=== PATIENT | male | born 1940 | race Caucasian/White ===

== ENCOUNTER 2020-04-15 00:39 | Emergency (ER) | payer OTHER, SELFPAY ==
[2020-04-15 00:52] VITALS: BP 128/56; PULSE 55; RESP 16; TEMP 36.6; O2SAT 96; BMI 28.7
[2020-04-15 01:30] VITALS: BP 103/50; PULSE 58; RESP 16; O2SAT 95
--- NOTE | 2020-04-15 01:38 | ED_ITS ---
HPI - Nausea/Vomiting/Diarrhea General Chief complaint: Nausea/Vomiting/Diarrhea Stated complaint: fall thursday/hit back/poss cracked rib Time Seen by Provider: 04/15/20 00:52 Source: patient Mode of arrival: Wheelchair Limitations: physical limitation History of Present Illness HPI Narrative: Patient is a 79-year-old male here for evaluation of left-sided flank pain, problems breathing and nausea. Patient states that approximately 4 days ago he was outside working in the yard where he slipped on some wet grass and fell landing on his left side. He did not hit his head. There was no loss of consciousness. Since then he has had pain in his left flank and has had problems taking a deep breath. No fevers. Had some pain medication at home left over from another issue and he has been taking that which he states only minimally helps his symptoms. He then states that he has not had a bowel movement in at least 3 days. He is still passing gas. No vomiting. No nausea. Describes generalized abdominal pain. Came into the emergency department because of the lack of a bowel movement several days and also because of the continued pain in his left flank. Related Data Allergies Allergy/AdvReac Type Severity Reaction Status Date / Time No Known Drug Allergies Allergy Verified 04/15/20 00:52 Review of Systems Constitutional Constitutional: Denies fever(s) and Denies headache(s) ENT Ears, Nose, Mouth, and Throat: Denies vertigo, Denies dizziness and Denies headache(s) Cardiovascular Cardiovascular: Denies chest pain, Denies rapid heart rate, Denies lighthead edness and Denies dyspnea on exertion Respiratory Respiratory: Denies cough, Denies hemoptysis, Reports pain on inspiration, Reports pain with cough and Denies dyspnea on exertion Gastrointestinal Gastrointestinal: Reports abdominal pain, Denies nausea and Denies vomiting Genitourinary Genitourinary: Denies dysuria Genitourinary: Denies dysuria Musculoskeletal Comments: Left flank pain Integumentary/Breasts Skin/Breast: Denies rash Comments: Bruising left flank Neurologic Neurologic: Denies behavioral changes, Denies confusion, Denies vertigo, Denies dizziness and Denies headache(s) Psychiatric Psychiatric: Denies behavioral changes and Denies confusion Hematologic/Lymphatic Hematologic/Lymphatic: Denies easy bleeding and Denies easy bruising Allergic/Immunologic Allergic/Immunologic: Denies urticaria Patient History Medical History History of kidney cancer (Acute) Surgical History History of nephrectomy, right (Acute) Social History Smoking Status: Never smoker Smoking Status: Never smoker alcohol intake frequency: other Substance Use Type: does not use Exam Initial Vital Signs Initial Vital Signs: Vital Signs Temperature 97.9 F 04/15/20 00:52 Pulse Rate 55 L 04/15/20 00:52 Respiratory Rate 16 04/15/20 00:52 Blood Pressure 128/56 L 04/15/20 00:52 Pulse Oximetry 96 04/15/20 00:52 Const General: cooperative, healthy appearing, comfortable, well developed and well groomed Limitations: mental status not altered HENMT Head: normal to inspection and normocephalic Resp Effort & Inspection: normal respiratory effort Auscultation: clear to auscultation bilaterally Cardio Rate: regular rate Rhythm: regular rhythm GI Inspection: non-distended Palpation: soft, No firm and tender (Generalized) Back/Spine/Pelvis Other: Bruising left flank with tenderness over this area Skin Other: Bruising left flank Neuro General: patient alert, patient awake and patient oriented x3 Speech: speech normal Extrem General: normal to inspection and capillary refill normal Psych Appearance: grossly normal and well kempt Scores GCS [place] coma scale eye opening: Spontaneous [place] coma scale verbal response: Orientated [place] coma scale motor response: Obey commands Curtis coma scale total score: 15 Course Orders Ordered: ED Orders 04/15/20 01:50 CT abdomen pelvis wo con Stat Vital Signs Vital signs: Vital Signs - 8 hr 04/15/20 00:52 04/15/20 01:30 04/15/20 02:36 Temperature 97.9 F Pulse Rate 55 L 58 L 52 L Respiratory Rate 16 16 16 Blood Pressure 128/56 L 103/50 L 102/51 L Pulse Oximetry 96 95 97 MDM - Nausea/Vomiting/Diarrhea Imaging Data CT scan - abdomen/pelvis: Radiologist's Impression: Left 9th and 10th rib fractures appear to be acute. A small amount of adjacent pleural fluid could represent hemorrhage. Gas within the adjacent lung parenchyma could represent a posttraumatic pneumatocele. No pneumothorax is appreciated, but the long is incompletely imaged on this study. Multiple compression fractures of thoracic lumbar vertebral bodies are probably old. There exact ages are not determined. Otherw ise there are degenerative changes of the lumbar spine. No pelvic fracture is suspected. Chronic changes and postoperative changes of the abdomen including right nephrectomy and cholelithiasis. No solid organ injury is appreciated. Infrarenal abdominal aortic aneurysm measures up to 4.6 cm in diameter MDM Narrative Medical decision making narrative: Patient is not hypoxic, not tachypneic, has been 4 days since his fall. The fall does appear to be mechanical. He has no intra-abdominal injuries and no signs of a bowel obstruction. I suspect that his decrease in bowel movements over the past several days is most likely secondary to the use of the Tylenol 3. I did discuss this with him. We did discuss the use of either he stool softener or laxative. I offered a prescription for this however patient states that he would rather pick it up [id number]. He does have left-sided 9th and 10th rib fractures. Given his age and the fall a modified trauma was called secondary to this. He is not on anticoagulation. He is not in any respiratory distress. I did discuss the case with Dr. Yee who is on-call for General surgery given the injuries. After this discussion we felt that given the patient's clinical presentation, the length of time since his fall that sending the patient home with symptom control good return precautions is not unreasonable at this point in time. The patient does have pain medication at home. We discussed the use of this. He was seen by respiratory therapy given an incentive spirometer. He was given strict return precautions with regard to his injuries. He and his expressed understanding and agreement. Discharge Plan Departure Patient Disposition: Home Clinical Impression: Multiple rib fractures Qualifiers: Encounter type: initial encounter Fracture type: closed Laterality: left Qualified Code(s): S22.42XA - Multiple fractures of ribs, left side, initial encounter for closed fracture Discharge Date/Time: 04/15/20 03:37 Instructions: DI for Rib Fracture Activity Restrictions/Additional Instructions: Use the incentive spirometer as directed. Continue with the pain medication as needed. Be sure that you are occasionally coughing and taking deep breaths like we discussed. Also recommend that you start an [id number] stool softener/laxative. Return to the emergency department for any fevers or worsening pain or problems breathing. Contact your primary provider for follow- up.
--- NOTE | 2020-04-15 01:50 | DI.CT.S_ITS ---
PROCEDURE: CT ABDOMEN PELVIS WO CON INDICATIONS: Injury. TECHNIQUE: Noncontrast 5 mm thick sections acquired from the diaphragms to the symphysis. 5 mm coronal and sagittal reformats were then performed. For radiation dose reduction, the following was used: automated exposure control, adjustment of mA and/or kV according to patient size. COMPARISON: None. FINDINGS: Image quality: Excellent. ABDOMEN: Lung bases: Rounded density within the right lower lobe posteriorly measuring 22 mm. Mild dependent bibasilar atelectasis. Small left pleural effusion. Heart size is normal. Calcification of the coronary vasculature Solid organs: Liver is normal in size. Gallbladder demonstrates multiple calculi within its lumen. Pancreas is normal in contours. Spleen is normal in size. No adrenal nodules. Right kidney is absent. Left kidney is within normal limits. Vascular calcifications within the left kidney are present. Peritoneum and bowel: Unenhanced bowel loops demonstrate normal wall thickness and caliber. No free fluid or air. Nodes and vessels: No retroperitoneal or mesenteric adenopathy by size criteria. There is a 5th 50 mm diameter infrarenal abdominal aortic aneurysm. Miscellaneous: No ventral hernias. PELVIS: Genitourinary: Bladder wall thickness is normal. Miscellaneous: No inguinal hernias or adenopathy. Bones: Mildly displaced left posterior 10th rib fracture. Chronic appearing T11, T12, L2, and L4 compression fractures are present. IMPRESSION: 1. Left posterior 10th rib fracture with small adjacent effusion. 2. Indeterminate density within the right lower lobe posteriorly. Initial further assessment with chest CT with contrast is recommended to assess for neoplasm. Finding could also could indicate lung injury or rounded atelectasis. 3. Cholelithiasis. 4. Infrarenal abdominal aortic aneurysm. 5. Coronary artery disease. 6. Concordant with preliminary interpretation. Dictated by: Jose Mukherjee M.D. on 04/15/2020 at 8:58 Approved by: Jose Mukherjee M.D. on 04/15/2020 at 9:03
[2020-04-15 02:36] VITALS: BP 102/51; PULSE 52; RESP 16; O2SAT 97
== END 2020-04-15 03:37 | disposition home or self-care (01) ==
PROVIDERS: Emergency Provider Emergency Medicine
DX: S22.42XA Multiple fractures of ribs, left side, initial encounter for closed fracture (principal); W18.30XA Fall on same level, unspecified, initial encounter; R06.00 Dyspnea, unspecified; R11.0 Nausea; K59.00 Constipation, unspecified; R10.84 Generalized abdominal pain
CPT/HCPCS: 74176; 99283; 99284

== ENCOUNTER 2024-08-09 15:51 | Emergency (ER) | payer OTHER, SELFPAY ==
[2024-08-09] VITALS (10 sets, daily range): BP systolic 119–173; BP diastolic 58–77; PULSE 54–63; RESP 16–20; TEMP 36.6–36.9; O2SAT 93–97; BMI 27.3
--- NOTE | 2024-08-09 16:33 | DI.RAD.S_ITS ---
PROCEDURE: XR CHEST 2V INDICATIONS: L sided back pain, pain with breathing and coughing TECHNIQUE: 2 views of the chest were acquired. COMPARISON: [facility], CT, CT ABDOMEN PELVIS WO CON, 04/15/2020, 1:51. FINDINGS: Surgical changes and devices: None Lungs and pleura: Bibasilar consolidation, right greater than left. Small right pleural effusion. Bibasilar reticulation. Mediastinum: Mediastinal contours are normal. Heart size is normal. Bones and chest wall: No suspicious bony abnormalities. Soft tissues appear unremarkable. IMPRESSION: Bibasilar consolidation, right greater than left, with small right pleural effusion. Findings are concerning for multifocal pneumonia or aspiration. Dictated by: Jose Alejandro Wong M.D. on 08/09/2024 at 16:58 Approved by: Jose Alejandro Wong M.D. on 08/09/2024 at 16:58
--- NOTE | 2024-08-09 22:31 | ED.BACK ---
HPI - Back Pain/Injury General Chief Complaint: Back Pain/Injury Stated Complaint: L Side/Back Pain, Bottom of rib cage Time Seen by Provider: 08/09/24 22:31 Source: patient History of Present Illness HPI Narrative: Patient 84-year-old male history of COPD, known AAA pending repair presenting today with left-sided rib pain on the back. He states that he always has a cough his cough is any worse however 3 days ago he started noticing pain whenever he coughed. He denies any sort of fever or chills. He has not coughing anything up. He has not fallen. He reports that he has an abdominal aneurysm which is supposed to be repaired it sounds like soon. No abdominal pain nausea vomiting or passing out no significant chest pain Related Data Allergies Allergy/AdvReac Type Severity Reaction Status Date / Time No Known Drug Allergies Allergy Verified 04/15/20 00:52 Patient History Medical History (Updated 08/10/24 @ 00:34 by Lucretia Porter DO) History of kidney cancer Surgical History History of nephrectomy, right Social History Smoking Status: Never smoker Smoking Status: Never smoker alcohol intake frequency: other Substance Use Type: does not use Exam Initial Vital Signs Initial Vital Signs: Vital Signs Temperature 98.4 F 08/09/24 16:18 Pulse Rate 59 L 08/09/24 16:18 Respiratory Rate 16 08/09/24 16:18 Blood Pressure 173/77 H 08/09/24 16:18 Pulse Oximetry 94 08/09/24 16:18 Oxygen Delivery Method Room Air 08/09/24 16:18 GENERAL: Alert pleasant 84-year-old male and in no acute distress. HEENT: Head atraumatic,EOMI, pupils reactive, face symmetric, moist mucous membranes CARDIOVASCULAR: Regular rate and rhythm without murmurs, rubs or gallops. RESPIRATORY: Breath sounds equal bilaterally, no wheezes rales or rhonchi. Posterior right rib pain reproducible to palpation ABDOMEN: Soft, nontender. Normoactive bowel sounds all 4 quadrants. No guarding or rebound. No pulsatile masses : No CVA tenderness EXTREMITIES: Normal range of motion, no clubbing or edema. Neurovascularly intact NEUROLOGICAL: Alert and oriented x4.Normal gait and speech. Cranial nerves II through XII grossly intact. SKIN: Warm, dry, no laceration, no petechiae, no rashes or lesions. Course Orders Ordered: ED Orders 08/09/24 22:52 CT angio chest abdomen pelvis Stat 08/09/24 22:58 BNP [NT-proBNP (BNP-Adult 18+)] Stat CBC Auto Diff [Complete Blood Count AUTO DIFF] Stat Comprehensive Metabolic Panel Stat Lactate (Lactic Acid) Stat Procalcitonin Stat Troponin & CK Cardiac Panel Stat 08/09/24 23:56 Urine Microscopic Stat Discontinued Medications Lidocaine (Lidocaine 5% Patch) 1 each TOP NOW ONE Stop: 08/10/24 00:35 Last Admin: 08/10/24 00:46 Dose: 1 each Documented By: PROSPER Vital Signs Vital signs: Vital Signs - 8 hr 08/09/24 20:02 08/09/24 21:41 08/09/24 21:41 Temperature 97.9 F Pulse Rate 62 Respiratory Rate 20 18 Blood Pressure 166/73 H 137/62 Pulse Oximetry 94 Oxygen Delivery Method Room Air Room Air 08/09/24 21:48 08/09/24 21:48 08/09/24 22:00 Temperature Pulse Rate 63 59 L Respiratory Rate Blood Pressure 146/65 H Pulse Oximetry 97 96 Oxygen Delivery Method Room Air 08/09/24 22:00 08/09/24 22:30 08/09/24 22:31 Temperature Pulse Rate 54 L Respiratory Rate 20 Blood Pressure 149/65 H 119/58 L Pulse Oximetry 94 Oxygen Delivery Method Room Air 08/09/24 22:31 08/09/24 23:00 08/09/24 23:01 Temperature Pulse Rate 54 L 57 L Respiratory Rate 19 Blood Pressure 165/73 H Pulse Oximetry 93 95 Oxygen Delivery Method Room Air 08/09/24 23:01 08/09/24 23:30 08/10/24 00:00 Temperature Pulse Rate 54 L 59 L 58 L Respiratory Rate 20 Blood Pressure Pulse Oximetry 95 94 94 Oxygen Delivery Method Room Air 08/10/24 00:30 08/10/24 00:40 08/10/24 00:49 Temperature Pulse Rate 57 L 56 L Respiratory Rate 18 19 Blood Pressure 164/73 H Pulse Oximetry 95 93 Oxygen Delivery Method Room Air Room Air MDM - Back Pain/Injury Lab Data 08/09/24 22:58 08/09/24 22:58 Labs: Lab Results 08/09/24 08/09/24 Range/Units 22:58 23:56 WBC 8.0 (4.5-11.0) X10^3/uL RBC 2.16 L (4.5-5.9) X10^6/uL Hgb 8.8 L (13.5-17.5) g/dL Hct 26.0 L (41-53) % MCV 120.2 H (80-100) fL MCH 40.7 H (26-34) PG MCHC 33.9 (30-36) % RDW 16.7 H (11.6-14.8) % Plt Count 293 (150-400) X10^3/uL Neut % (Auto) 63.5 (50-75) % Lymph % (Auto) 20.4 L (25-40) % [place] % (Auto) 9.0 (3-14) % Eos % (Auto) 3.2 (2-4) % Baso % (Auto) 3.9 H (0-2) % Neut # (Auto) 5100 (8373-9615) /uL Lymph # (Auto) 1600 (0532-3861) /uL [place] # (Auto) 700 (0-900) /uL Eos # (Auto) 300 (0-450) /uL Baso # (Auto) 300 H (0-100) /uL Platelet Estimate Adequate on smear RBC Morphology See below Anisocytosis 1+ H Microcytosis 1+ H Ovalocytes 1+ H Sodium 139 (137-145) mmol/L Potassium 4.1 (3.4-5.1) mmol/L Chloride 104 (98-107) mmol/L Carbon Dioxide 29 (22-32) mmol/L BUN 25 H (9-20) mg/dL Creatinine 1.73 H (0.66-1.25) mg/dL Estimated GFR 38 L (>60) mL/min BUN/Creatinine Ratio 14.5 (6-22) Glucose 108 (80-110) mg/dL Lactate 1.3 (0.7-2.1) mmol/L Calcium 9.7 (8.4-10.2) mg/dL Total Bilirubin 0.9 (0.2-1.3) mg/dL AST 26 (17-59) IU/L ALT 14 (<50) IU/L Alkaline Phosphatase 78 (38-126) U/L Total Creatine Kinase 27 L (55-170) U/L Troponin I 0.024 (0.01-0.034) ng/mL NT-Pro-B Natriuret Pep 2970 H (<450) pg/mL Total Protein 6.9 (6.3-8.2) g/dL Albumin 4.1 (3.5-5.0) g/dL Globulin 2.8 (1.7-4.1) g/dL Albumin/Globulin Ratio 1.5 (1.0-2.8) Procalcitonin 0.156 (<0.5) ng/mL Urine RBC 1-5/hpf (0-5/HPF) Urine WBC None seen (0-5/HPF) Ur Squamous Epith Cells 0-1 /hpf (0-5/HPF) Urine Bacteria None seen (None) Ur Culture Indicated? Cult not indicated Vol Urine Centrifuged 10ml (spun) Urine Dip Bedside Urine Glucose Negative Bedside Urine Bilirubin - Negative Bedside Urine Ketone - Negative Urine Specific [place] 1.015 Bedside Urine Occult Blood - Negative Bedside Urine pH 6.0 Bedside Urine Protein ++ 100 Bedside Urine Urobilinogen - Negative Bedside Urine Nitrite - Negative Bedside Urine Leukocytes - Negative Esterase Imaging Data CT scan - abdomen/pelvis: Radiologist's Impression: PROCEDURE: CT ANGIO CHEST ABDOMEN PELVIS INDICATIONS: left sided back pain with known AAA TECHNIQUE: Precontrast 5 mm thick sections acquired from the lung apices to the iliac crests. After the administration of intravenous contrast, 2.5 mm thick sections again acquired from the lung apices to the iliac crests. Maximum intensity projection (MIP) oblique sagittal and coronal reformats were then acquired. For radiation dose reduction, the following was used: automated exposure control. COMPARISON: [facility], CT, CT ABDOMEN PELVIS WO CON, 04/15/2020, 1:51. FINDINGS: Image quality: Diagnostic. AORTA: Heavy aortic valvular calcification. No ascending aortic aneurysm. Calcified and noncalcified arch atherosclerosis. No dissection or ulceration. Descending thoracic aorta is normal. Mid to distal abdominal aortic aneurysm with eccentric thrombus. There is mild peripheral calcification. Aneurysm measures 5.3 x 5.6 cm, increased compared to 04/15/20 where it measured 4.8 x 4.6 cm. Extremely tortuous left common iliac artery origin. Moderate iliac tortuosity and calcification bilaterally. CHEST: Lower Neck: No enlarged lymph nodes. Thyroid: Normal CT appearance. Axillae: Borderline enlarged left hilar lymph node in level one. Chest Wall: No chest wall mass. Lungs and Pleura: Multifocal masslike irregular parenchymal densities involving the posterior right lower lung, increased in extent compared to prior. Findings are on a background of moderate upper lobe predominant emphysematous changes and bibasilar subpleural fibrotic change. There is irregular interstitial and septal thickening at the lung bases. Very small right pleural effusion is present. No pneumothorax. Central airway is patent. Moderate bilateral lower lung bronchial wall thickening, right much worse than left and right lower lobe central bronchial wall thickening due to surrounding adenopathy. Heart: Mild cardiomegaly. Moderate to heavy coronary artery calcification. No pericardial effusion. Thoracic Vessels: Extrinsic compression of the right upper and lower pulmonary arteries without thrombus. Left pulmonary arteries appear normal. Mediastinum and Melissa: There is bulky mediastinal, subcarinal, and right infrahilar adenopathy. A precarinal lymph node measures 2 cm in short axis. Esophagus: Mild long segment circumferential esophageal wall thickening, nonspecific. No hiatal hernia. ABDOMEN: Liver: No solid mass. Gallbladder: Dependent, granular gallstones. No gallbladder wall thickening. Biliary ducts: No biliary dilation. Pancreas: Occasional parenchymal calcification. No ductal dilatation. No peripancreatic inflammation. Spleen: Normal size. Adrenal Glands: Mild diffuse thickening of the body of the left adrenal gland, new since the prior exam. No right adrenal nodule. Kidneys and Ureters: Prior right nephrectomy. The left kidney enhances normally and there are several cortical cysts. No intrarenal calculi. No hydronephrosis or hydroureter. Stomach and Bowel: Stomach and small bowel loops are normal caliber. Appendix not seen. Normal quantity of colonic stool. No suspicious colon wall thickening or inflammation. Peritoneum: No abnormal intraperitoneal fluid. No free air. Ventral Wall: No hernia. Abdominal Nodes: No nora hepatis, retroperitoneal, or mesenteric adenopathy. Vessels: Portal vein and IVC are normal caliber. PELVIS: Pelvic Organs: TURP defect in the prostate. Bladder: No stones or wall thickening. Pelvic Nodes: No enlarged lymph nodes. Miscellaneous: No inguinal hernias are seen. Bones: Degenerative appearing vertebral body height loss of T11 and T12. Prominent endplate spurs. No visible bone lesions. IMPRESSION: Abdominal aortic aneurysm, increased in size compared to the prior exam but without findings of rupture or dissection. Interval development of multifocal patchy right lower lung pulmonary parenchymal opacities and adenopathy suspicious for malignancy, although infection may be present as well. Pulmonary findings are superimposed on emphysema and early bibasilar fibrosis. New thickening of the left adrenal gland is suspicious for metastatic disease. Cholelithiasis. Prior right nephrectomy. Dictated by: Karly Bishop M.D. on 08/09/2024 at 23:42 MDM Narrative Medical decision making narrative: Patient 84-year-old male history of abdominal aortic aneurysms COPD presenting today with left-sided back pain. It is worse when he coughs and moves. Vitals are stable. X-ray is initially read as pneumonia. Patient does not have any fever or infectious like symptoms. Blood work WBCs 8.0 mild anemia hemoglobin 8.8 hematocrit 26.0 CMP sodium 139 potassium 4.1 chloride 104 carbon dioxide 29 BUN 25 creatinine 1.7 Troponin 0[address] chest abdomen pelvis angio shows stable aneurysm without evidence of impending rupture Lungs show multifocal mass like irregular parenchymal densities involving posterior right lower lung and increased in stent compared to prior. There is also irregular interstitial septal thickening of the lobes and a small right pleural effusion. Patient has pain on the left side not the right side so I do not think he effusion is causing his pain. Pain seems very musculoskeletal positional. Long discussion with patient about pain control. He does not want opiates for pain. Tylenol does not work he can not take NSAIDs due to chronic kidney disease he said steroids have helped previously but can not take steroids because he is supposed to be getting his aorta repaired talked about a lidocaine patch but nobody can reach it for him. Not concerned that patient pneumonia as previously reported on x-ray. He has no fever leukocytosis he has no change in his cough. Think what was reported as pneumonia is actually a mass. I discussed with patient mass in lung with history of smoker certainly concerning for cancer. He also has a pleural effusion on that side as well also suspicious. He has given a lidocaine patch here in the ED for the left side of his back which actually hurts. Discharge Plan Departure Patient Disposition: Home Clinical Impression: Lung mass, Back pain, Pleural effusion Instructions: DI for Lung Cancer Activity Restrictions/Additional Instructions: *You have been diagnosed with right-sided lung mass left-sided back pain *What to do: At this time you do have a mass in your lung this needs to be further evaluated including biopsy and possible Oncology referral and evaluation *Continue to take medications as directed Lidocaine patch for 12 hours then remove Tylenol 1000 mg every 6 hours if needed for [id number] pain *Follow up with your primary care provider in 2-3 days or call [phone] *Return to ER if you should have increasing pain shortness of breath weakness or any new, worsening or concerning symptoms Stand Alone Forms: Patient Portal/API/Survey
--- NOTE | 2024-08-09 22:52 | DI.CT.S_ITS ---
PROCEDURE: CT ANGIO CHEST ABDOMEN PELVIS INDICATIONS: left sided back pain with known AAA TECHNIQUE: Precontrast 5 mm thick sections acquired from the lung apices to the iliac crests. After the administration of intravenous contrast, 2.5 mm thick sections again acquired from the lung apices to the iliac crests. Maximum intensity projection (MIP) oblique sagittal and coronal reformats were then acquired. For radiation dose reduction, the following was used: automated exposure control. COMPARISON: [facility], CT, CT ABDOMEN PELVIS WO CON, 04/15/2020, 1:51. FINDINGS: Image quality: Diagnostic. AORTA: Heavy aortic valvular calcification. No ascending aortic aneurysm. Calcified and noncalcified arch atherosclerosis. No dissection or ulceration. Descending thoracic aorta is normal. Mid to distal abdominal aortic aneurysm with eccentric thrombus. There is mild peripheral calcification. Aneurysm measures 5.3 x 5.6 cm, increased compared to 04/15/20 where it measured 4.8 x 4.6 cm. Extremely tortuous left common iliac artery origin. Moderate iliac tortuosity and calcification bilaterally. CHEST: Lower Neck: No enlarged lymph nodes. Thyroid: Normal CT appearance. Axillae: Borderline enlarged left hilar lymph node in level one. Chest Wall: No chest wall mass. Lungs and Pleura: Multifocal masslike irregular parenchymal densities involving the posterior right lower lung, increased in extent compared to prior. Findings are on a background of moderate upper lobe predominant emphysematous changes and bibasilar subpleural fibrotic change. There is irregular interstitial and septal thickening at the lung bases. Very small right pleural effusion is present. No pneumothorax. Central airway is patent. Moderate bilateral lower lung bronchial wall thickening, right much worse than left and right lower lobe central bronchial wall thickening due to surrounding adenopathy. Heart: Mild cardiomegaly. Moderate to heavy coronary artery calcification. No pericardial effusion. Thoracic Vessels: Extrinsic compression of the right upper and lower pulmonary arteries without thrombus. Left pulmonary arteries appear normal. Mediastinum and Melissa: There is bulky mediastinal, subcarinal, and right infrahilar adenopathy. A precarinal lymph node measures 2 cm in short axis. Esophagus: Mild long segment circumferential esophageal wall thickening, nonspecific. No hiatal hernia. ABDOMEN: Liver: No solid mass. Gallbladder: Dependent, granular gallstones. No gallbladder wall thickening. Biliary ducts: No biliary dilation. Pancreas: Occasional parenchymal calcification. No ductal dilatation. No peripancreatic inflammation. Spleen: Normal size. Adrenal Glands: Mild diffuse thickening of the body of the left adrenal gland, new since the prior exam. No right adrenal nodule. Kidneys and Ureters: Prior right nephrectomy. The left kidney enhances normally and there are several cortical cysts. No intrarenal calculi. No hydronephrosis or hydroureter. Stomach and Bowel: Stomach and small bowel loops are normal caliber. Appendix not seen. Normal quantity of colonic stool. No suspicious colon wall thickening or inflammation. Peritoneum: No abnormal intraperitoneal fluid. No free air. Ventral Wall: No hernia. Abdominal Nodes: No nora hepatis, retroperitoneal, or mesenteric adenopathy. Vessels: Portal vein and IVC are normal caliber. PELVIS: Pelvic Organs: TURP defect in the prostate. Bladder: No stones or wall thickening. Pelvic Nodes: No enlarged lymph nodes. Miscellaneous: No inguinal hernias are seen. Bones: Degenerative appearing vertebral body height loss of T11 and T12. Prominent endplate spurs. No visible bone lesions. IMPRESSION: Abdominal aortic aneurysm, increased in size compared to the prior exam but without findings of rupture or dissection. Interval development of multifocal patchy right lower lung pulmonary parenchymal opacities and adenopathy suspicious for malignancy, although infection may be present as well. Pulmonary findings are superimposed on emphysema and early bibasilar fibrosis. New thickening of the left adrenal gland is suspicious for metastatic disease. Cholelithiasis. Prior right nephrectomy. Dictated by: Karly Bishop M.D. on 08/09/2024 at 23:42 Approved by: Karly Bishop M.D. on 08/10/2024 at 0:00
[2024-08-09 23:13] LABS: Add Manual Diff / Slide Review NO; Basophils Absolute Auto 300 /uL (0-100); Basophils Percent Auto 3.9 % (0-2); Eosinophils Absolute Auto 300 /uL (0-450); Eosinophils Percent Auto 3.2 % (2-4); Hemoglobin 8.8 g/dL (13.5-17.5); Lymphocytes Absolute Auto 1600 /uL (1100-4500); Lymphocytes Percent Auto 20.4 % (25-40); Mean Corpuscular HGB Conc 33.9 % (30-36); Mean Corpuscular Hemoglobin 40.7 PG (26-34); Mean Corpuscular Volume 120.2 fL (80-100); Monocytes Absolute Auto 700 /uL (0-900); Neutrophils Absolute Auto 5100 /uL (1500-7000); Neutrophils Percent Auto 63.5 % (50-75); Platelet Count 293 X10^3/uL (150-400); Red Blood Cell Count 2.16 X10^6/uL (4.5-5.9); Red Cell Distribution Width 16.7 % (11.6-14.8)
[2024-08-09 23:17] LABS: HEMOLYSIS < 15 (0-50)
[2024-08-09 23:21] LABS: Lactate (Lactic Acid) 1.3 mmol/L (0.7-2.1)
[2024-08-09 23:22] LABS: Alanine Aminotransferase 14 IU/L (<50); Albumin 4.1 g/dL (3.5-5.0); Albumin Globulin Ratio 1.5 (1.0-2.8); Alkaline Phosphatase 78 U/L (38-126); Aspartate Aminotransferase 26 IU/L (17-59); BUN Creatinine Ratio 14.5 (6-22); Bilirubin Total 0.9 mg/dL (0.2-1.3); Blood Urea Nitrogen 25 mg/dL (9-20); Calcium 9.7 mg/dL (8.4-10.2); Carbon Dioxide 29 mmol/L (22-32); Chloride 104 mmol/L (98-107); Creatine Kinase 27 U/L (55-170); Estimated Glomerular Filt Rate 38 mL/min (>60); Globulin 2.8 g/dL (1.7-4.1); Glucose 108 mg/dL (80-110); Potassium 4.1 mmol/L (3.4-5.1); Sodium 139 mmol/L (137-145); Total Protein 6.9 g/dL (6.3-8.2)
[2024-08-09 23:39] LABS: Procalcitonin 0.156 ng/mL (<0.5)
[2024-08-09 23:49] LABS: Anisocytosis 1+; Microcytosis 1+; Ovalocytes 1+; Platelet Estimate Adequate on smear
[2024-08-10] VITALS: PULSE 58; O2SAT 94
[2024-08-10 00:07] LABS: NT-proBNP (BNP-Adult 18+) 2970 pg/mL (<450); Troponin I 0.024 ng/mL (0.01-0.034)
[2024-08-10 00:16] LABS: Bacteria Urine None Seen; Culture Indicated Urine Cult Not Indicated; RBC Urine 1-5/HPF (0-5/HPF); Squamous Epithelial Cell Urine 0-1 /HPF (0-5/HPF); Urine Volume 10mL (spun); WBC Urine None Seen (0-5/HPF)
[2024-08-10 00:30] VITALS: PULSE 57; RESP 18; O2SAT 95
[2024-08-10 00:40] VITALS: PULSE 56; RESP 19; O2SAT 93
[2024-08-10] MEDS: LIDOCAINE 5% PATCH 1 EACH TOP (00:46)
[2024-08-10 00:49] VITALS: BP 164/73
== END 2024-08-10 00:58 | disposition home or self-care (01) ==
PROVIDERS: Emergency Provider Emergency Medicine
DX: J90 Pleural effusion, not elsewhere classified (principal); R91.8 Other nonspecific abnormal finding of lung field; M54.9 Dorsalgia, unspecified; R06.00 Dyspnea, unspecified
CPT/HCPCS: 36415; 71046; 71275; 74174; 80053; 81003; 81015; 82550; 83605; 83880; 84145; 84484; 85025; 99283; 99284; Q9967